=== PATIENT | female | born 1935 | race Caucasian/White ===

== ENCOUNTER 2022-01-28 12:46 | Emergency (ER) | payer MEDICARE ==
[2022-01-28] MEDS ORDERED: BEBTELOVIMAB (EUA) 175 MG/2 ML VIAL IV ONE (16:00)
[2022-01-28] MEDS ORDERED: ACETAMINOPHEN TAB 325 MG TAB PO STA (16:04)
--- NOTE | 2022-01-28 16:34 | XR ---
EXAMINATION TYPE: XR chest 2V DATE OF EXAM: 01/28/2022 COMPARISON: None HISTORY: 86-year-old female with cough and congestion TECHNIQUE: PA and lateral views FINDINGS: Heart upper limits of normal in size. Strandy atelectasis in the lower lungs. No consolidation or ple ural effusion otherwise seen. Median sternotomy wires and post-CABG clips. IMPRESSION: Borderline heart size. Chronic appearing changes. Strandy atelectasis in the lower lungs. Post-CABG c hanges. Otherwise, no definite acute process.
[2022-01-28 17:16] VITALS: BP 164/79; PULSE 70; RESP 20; TEMP 99.1
--- NOTE | 2022-01-28 17:21 | ED ---
General Adult HPI - General Chief complaint: ENT Stated complaint: Sore Throat,Weakness Time Seen by Provider: 01/28/22 15:06 Source: patient Mode of arrival: ambulatory Limitations: no limitations - History of Present Illness Initial comments: Patient is an 86-year-old female presenting with chief complaint of sore throat and fever. Patient states that her tested positive for Covid several days ago, she suspects that she has now contracted it. She admits to nonproductive cough and chills. Symptoms started on Friday. She has been taking Tylenol and Chloraseptic spray. She denies chest pain, shortness of breath, palpitations, weakness, headache, vision or hearing changes, neck pain or stiffness, abdominal pain, nausea, vomiting, dysuria, hematuria. - Related Data Home Medications Medication Instructions Recorded Confirmed Aspirin EC [Ecotrin Low Dose] 81 mg PO DAILY 01/28/22 01/28/22 Atorvastatin [Lipitor] 40 mg PO DAILY 01/28/22 01/28/22 Azelastine HCl [Astepro] 2 spray NASAL BID 01/28/22 01/28/22 Carvedilol [Coreg] 12.5 mg PO BID 01/28/22 01/28/22 Cholecalciferol [Vitamin D3 (25 50 mcg PO DAILY 01/28/22 01/28/22 Mcg = 1000 Iu)] Estradiol [Yuvafem] 10 mcg VG WESA 01/28/22 01/28/22 Fluticasone Nasal [place] [Flonase 2 spray EA NOSTRIL DAILY 01/28/22 01/28/22 Nasal [place]] Losartan Potassium 50 mg PO DAILY 01/28/22 01/28/22 Moexipril HCl [Univasc] 15 mg PO BID 01/28/22 01/28/22 Nitroglycerin Sl Tabs [Nitrostat] 0.4 mg SUBLINGUAL Q5M PRN 01/28/22 01/28/22 Omeprazole 40 mg PO DAILY 01/28/22 01/28/22 Vitamin E (Dl,Tocopheryl Acet) 400 unit PO DAILY 01/28/22 01/28/22 [Vitamin E (400 Iu = 180 mg)] hydroCHLOROthiazide [Hydrodiuril] 12.5 mg PO DAILY 01/28/22 01/28/22 Allergies Allergy/AdvReac Type Severity Reaction Status Date / Time amoxicillin [From Augmentin] Allergy Unknown Verified 01/28/22 16:13 clavulanic acid Allergy Unknown Verified 01/28/22 16:13 [From Augmentin] lisinopril AdvReac Cough Verified 01/28/22 16:10 Review of Systems ROS Statement: Those systems with pertinent positive or pertinent negative responses have been documented in the HPI. ROS Other: All systems not noted in ROS Statement are negative. Past Medical History Past Medical History: Hyperlipidemia, Hypertension History of Any Multi-Drug Resistant Organisms: None Reported Past Surgical History: Coronary Bypass/CABG Past Psychological History: No Psychological Hx Reported Smoking Status: Never smoker Past Alcohol Use History: None Reported Past Drug Use History: None Reported General Exam Limitations: no limitations General appearance: alert, in no apparent distress Head exam: Present: atraumatic, normocephalic, normal inspection Eye exam: Present: normal appearance, EOMI. Absent: scleral icterus ENT exam: Present: normal exam, normal oropharynx, mucous membranes moist, TM's normal bilaterally Neck exam: Present: normal inspection. Absent: tenderness, meningismus Respiratory exam: Present: normal lung sounds bilaterally. Absent: respiratory distress, wheezes, rales, rhonchi, stridor Cardiovascular Exam: Present: regular rate, normal rhythm, normal heart sounds. Absent: systolic murmur, diastolic murmur, rubs, gallop, clicks Neurological exam: Present: alert, oriented X3, CN II-XII intact Psychiatric exam: Present: normal affect, normal mood Skin exam: Present: warm, dry, intact, normal color. Absent: rash Course Vital Signs 01/28/22 01/28/22 01/28/22 13:37 16:07 17:15 Temperature 98.9 F 101.2 F H 99.1 F Pulse Rate 72 76 70 Respiratory 16 22 20 Rate Blood Pressure 134/78 147/85 164/79 O2 Sat by Pulse 96 98 99 Oximetry Medical Decision Making - Medical Decision Making Patient is an 86-year-old female presenting with chief complaint of fever and nonproductive cough. She admits to sore throat. Patient states that her recently tested positive for Covid. On examination there are some coarse rails, they clear with coughing. Otherwise exam is WNL. Patient is positive for coronavirus in the ER today. She qualifies for monoclonal antibodies. Monoclonal antibodies were given and patient was monitored for one hour for any adverse reaction. Patient was also given acetaminophen in the ER due to a fever of 101. Chest x-ray was obtained which showed no acute process. On reevaluation patient is resting comfortably, there are no acute changes. She appears stable for discharge with outpatient follow-up at this time. Educated her on the current quarantined guidelines. Educated her on supportive treatment with Tylenol, occasional Chloraseptic spray if needed, cold compresses. Follow- up with PCP in one week. Report back to ER if any worsening symptoms. Educated on return parameters and alarming symptoms. Answered all questions. Patient conveyed verbal understanding and agreed to the plan. - Lab Data Lab Results 01/28/22 Range/Units 13:42 Coronavirus (PCR) Detected A (Not Detectd) Disposition Clinical Impression: COVID-19 Disposition: HOME SELF-CARE Condition: Good Instructions (If sedation given, give patient instructions): Coronavirus Disease 2019 (COVID-19), How to Recover from COVID-19 at Home (ED) Additional Instructions: You may utilize tylenol, chloraseptic spray, cold compresses at home as needed for symptomatic control. He must be quarantined for 5 days starting from the day of symptom onset, followed by 5 days of wearing a mask at all times when in public over the mouth and nose. Follow-up with your PCP within the week. Report back to ER if any worsening symptoms. Is patient prescribed a controlled substance at d/c from ED?: No Referrals: None,Stated [Primary Care Provider] - 02/04/22 Time of Disposition: 17:21
== END 2022-01-28 17:27 | disposition home or self-care (01) ==
LOC: EC 12:46
DX: U07.1 COVID-19 (principal); I10 Essential (primary) hypertension; E78.5 Hyperlipidemia, unspecified; Z88.8 Allergy status to other drugs, medicaments and biological substances; Z88.1 Allergy status to other antibiotic agents; Z79.899 Other long term (current) drug therapy; Z79.82 Long term (current) use of aspirin
CPT/HCPCS: 87635; 71046; 99285; Q0222